=== PATIENT | male | born 1985 | race Hispanic/Latino ===

== ENCOUNTER 2022-02-13 08:05 | Emergency (ER) | payer SELFPAY ==
[2022-02-13] MEDS ORDERED: MORPHINE 4 MG/ML SYR ONE (08:48)
[2022-02-13] MEDS ORDERED: KETOROLAC 30 MG/ML INJ ONE (08:48)
[2022-02-13] MEDS ORDERED: MORPHINE 2 MG/ML SYR ONE (08:48)
--- NOTE | 2022-02-13 10:39 | ER ---
Nurse's Notes [facility] Name: Fredrick Hensley Age: 36 yrs Sex: Male : 1985 Arrival Date: 02/13/2022 Time: 08:13 Bed 8 Private MD: Diagnosis: Low back pain Presentation: 02/13 08:17 Initial Sepsis Screen: Does the patient meet any 2 criteria? No. Patient's initial ll1 sepsis screen is negative. Does the patient have a suspected source of infection? Yes: Bone or joint infection. Risk Assessment: Do you want to hurt yourself or someone else? Patient reports no desire to harm self or others. Onset of symptoms was February 13, 2022. 08:17 Acuity: JANNETH 4 ll1 08:18 Chief complaint: Patient states: Sudden onset of R lower back pain while moving things ll1 this morning at home. Radiates down R leg. Coronavirus screen: Vaccine status: Patient reports being unvaccinated. Client denies travel out of the [place] in the last 14 days. At this time, the client does not indicate any symptoms associated with coronavirus-19. Ebola Screen: Patient denies travel to an Ebola-affected area in the 21 days before illness onset. 08:18 Method Of Arrival: Wheelchair ll1 Triage Assessment: 08:17 General: Appears uncomfortable, Behavior is calm, cooperative, appropriate for age. ll1 Pain: Complains of pain in R lower back Quality of pain is described as aching. Neuro: No deficits noted. Cardiovascular: No deficits noted. Musculoskeletal: Circulation, motion, and sensation intact. Capillary refill < 3 seconds, Reports pain in R lower back. Historical: - Allergies: 08:16 No Known Allergies; ll1 - PMHx: 08:16 Pneumonia; ll1 - PSHx: 08:16 LEG SX with metal placed; ll1 - Immunization history:: Client reports having NOT received the Covid vaccine. - Social history:: Smoking status: Patient/guardian denies using tobacco, the patient reports quitting approximately 1 years ago. Screenin:59 Abuse screen: Denies threats or abuse. Nutritional screening: No deficits noted. vg1 Tuberculosis screening: No symptoms or risk factors identified. Fall Risk None identified. Assessment: 08:30 General: Appears in no apparent distress. uncomfortable, Behavior is calm, cooperative. vg1 Pain: Complains of pain in right leg, right side lower back, and right side of buttocks Pain currently is 10 out of 10 on a pain scale. Pain began 1 hour ago. Neuro: Level of Consciousness is awake, alert, obeys commands, Oriented to person, place, time, situation, Denies paresthesias numbness. Cardiovascular: Patient's skin is warm and dry. Respiratory: Airway is patent Respiratory effort is even, unlabored. GI: No signs and/or symptoms were reported involving the gastrointestinal system. : No signs and/or symptoms were reported regarding the genitourinary system. EENT: No signs and/or symptoms were reported regarding the EENT system. Derm: Skin is intact, is healthy with good turgor. Musculoskeletal: Circulation, motion, and sensation intact. 09:30 Reassessment: Patient appears in no apparent distress at this time. No changes from vg1 previously documented assessment. Patient and/or family updated on plan of care and expected duration. Pain level reassessed. Patient is alert, oriented x 3, equal unlabored respirations, skin warm/dry/pink. states 'I still feel a pulling in my leg; pain is about 8/10'. Vital Signs: 08:17 BP 125 / 88; Pulse 68; Resp 18; Temp 97.9; Pulse Ox 97% ; Weight 117.93 kg; Height 5 ll1 ft. 6 in. (167.64 cm); Pain 10/10; 08:58 BP 108 / 62; Pulse 70; Resp 16; Pulse Ox 97% ; vg1 09:53 BP 117 / 77; Pulse 62; Resp 15; Pulse Ox 97% on R/A; vg1 08:17 Body Mass Index 41.96 (117.93 kg, 167.64 cm) ll1 ED Course: 08:13 Patient arrived in ED. am2 08:16 Arm band placed on Patient placed in an exam room, on a stretcher. ll1 08:18 Triage completed. ll1 08:19 Gonzalez Kapadia PA is PHCP. cp 08:19 Abdi Stevenson MD is Attending Physician. cp 08:26 Calli Marx, RN is Primary Nurse. vg1 08:59 Patient has correct armband on for positive identification. Bed in low position. Call vg1 light in reach. Side rails up X 1. Adult w/ patient. 08:59 No provider procedures requiring assistance completed. Patient did not have IV access vg1 during this emergency room visit. Administered Medications: 08:50 Drug: Ketorolac 30 mg Route: IM; Site: right deltoid; vg1 10:56 Follow up: Response: No adverse reaction; Marked relief of symptoms vg1 08:52 Drug: morphine 10 mg Route: IM; Site: left ventrogluteal; vg1 10:55 Follow up: Response: No adverse reaction; Marked relief of symptoms vg1 10:47 Not Given (Physician Discretion): Baclofen 10 mg PO once vg1 10:55 Drug: Lidoderm Patch 5 % (700 mg/patch) 1 patches Route: Topical; Site: affected area; vg1 10:56 Follow up: Response: Medication administered at discharge. vg1 10:55 Drug: Flexeril (cyclobenzaprine) 10 mg Route: PO; vg1 10:56 Follow up: Response: Medication administered at discharge. vg1 Outcome: 10:39 Discharge ordered by MD. lelia 10:56 Discharged to home ambulatory, with family. vg1 10:56 Condition: good 10:56 Discharge instructions given to patient, Instructed on discharge instructions, follow up and referral plans. medication usage, Demonstrated understanding of instructions, follow-up care, medications, Prescriptions given X 3. 10:56 Patient left the ED. vg1 Signatures: Gonzalez Kapadia PA PA cp Moreno, Amanda am2 Garcia, Victoria RN RN vg1 Nataila Castillo RN RN ll1 Corrections: (The following items were deleted from the chart) 08:57 08:52 morphine 10 mg IM in left vastus lateralis vg1 vg1
--- NOTE | 2022-02-13 10:39 | EDPHYS ---
Physician Documentation [facility] Name: Fredrick Hensley Age: 36 yrs Sex: Male : 1985 Arrival Date: 02/13/2022 Time: 08:13 Bed 8 Private MD: ED Physician Abdi Stevenson HPI: 02/13 08:40 This 36 yrs old Male presents to ER via Wheelchair with complaints of Back cp Pain. 08:40 The patient presents with pain that is acute. The symptoms are located in the right low cp back. Onset: The symptoms/episode began/occurred this morning. The pain radiates to the right leg. 08:40 Associated signs and symptoms: Pertinent negatives: abdominal pain, chest pain, cp constipation, dysuria, fever, incontinence, numbness, weakness. 08:40 The problem was sustained Patient reports he was lifting and moving things this morning cp and started having right lower back pain after driving to work. Historical: - Allergies: 08:16 No Known Allergies; ll1 - PMHx: 08:16 Pneumonia; ll1 - PSHx: 08:16 LEG SX with metal placed; ll1 - Immunization history:: Client reports having NOT received the Covid vaccine. - Social history:: Smoking status: Patient/guardian denies using tobacco, the patient reports quitting approximately 1 years ago. ROS: 08:45 Constitutional: Negative for body aches, chills, fever, poor PO intake. cp 08:45 Eyes: Negative for injury, pain, redness, and discharge. cp 08:45 Cardiovascular: Negative for chest pain, edema, palpitations. 08:45 Respiratory: Negative for cough, shortness of breath, wheezing. 08:45 Abdomen/GI: Negative for abdominal pain, nausea, vomiting, and diarrhea, constipation, bowel incontinence. 08:45 Back: Positive for pain at rest, pain with movement, of the right low back, Negative for injury or acute deformity. 08:45 : Negative for urinary symptoms, bladder incontinence, testicular pain 08:45 Neuro: Negative for altered mental status, headache, numbness, weakness. Exam: 08:50 Constitutional: The patient appears in no acute distress, alert, awake, non-toxic, well cp developed, well nourished, in obvious pain, uncomfortable. 08:50 Head/Face: Normocephalic, atraumatic. cp 08:50 Eyes: Periorbital structures: appear normal, Conjunctiva: normal, no exudate, no injection, Sclera: no appreciated abnormality, Lids and lashes: appear normal, bilaterally. 08:50 ENT: External ear(s): Nose: is normal, Posterior pharynx: Airway: no evidence of obstruction, patent. 08:50 Neck: ROM/movement: is normal, is supple, without pain, no range of motions limitations. 08:50 Chest/axilla: Inspection: normal. 08:50 Cardiovascular: Rate: normal. 08:50 Respiratory: the patient does not display signs of respiratory distress, Respirations: normal, no use of accessory muscles, no retractions, labored breathing, is not present. 08:50 Abdomen/GI: Inspection: abdomen appears normal, Palpation: abdomen is soft and non-tender, in all quadrants. 08:50 Back: pain, that is severe, of the right low back, ROM is painful, with all movement. 08:50 Neuro: Orientation: to person, place \T\ time. Mentation: is normal, Motor: moves all fours, strength is normal, Sensation: is normal, Deep tendon reflexes are 2+ (normal) in the right patellar, right Achilles, left patellar and left Achilles. Vital Signs: 08:17 BP 125 / 88; Pulse 68; Resp 18; Temp 97.9; Pulse Ox 97% ; Weight 117.93 kg; Height 5 ll1 ft. 6 in. (167.64 cm); Pain 10/10; 08:58 BP 108 / 62; Pulse 70; Resp 16; Pulse Ox 97% ; vg1 09:53 BP 117 / 77; Pulse 62; Resp 15; Pulse Ox 97% on R/A; vg1 08:17 Body Mass Index 41.96 (117.93 kg, 167.64 cm) ll1 MDM: 08:30 Patient medically screened. cp 10:38 Data reviewed: vital signs, nurses notes. cp 10:38 Counseling: I had a detailed discussion with the patient and/or guardian regarding: the cp historical points, exam findings, and any diagnostic results supporting the discharge/admit diagnosis, the need for outpatient follow up, a family practitioner, to return to the emergency department if symptoms worsen or persist or if there are any questions or concerns that arise at home. ED course: VSS. Pain markedly improved with meds. Patient appears more comfortable and ambulating in ED w/o assistance. Administered Medications: 08:50 Drug: Ketorolac 30 mg Route: IM; Site: right deltoid; vg1 10:56 Follow up: Response: No adverse reaction; Marked relief of symptoms vg1 08:52 Drug: morphine 10 mg Route: IM; Site: left ventrogluteal; vg1 10:55 Follow up: Response: No adverse reaction; Marked relief of symptoms vg1 10:47 Not Given (Physician Discretion): Baclofen 10 mg PO once vg1 10:55 Drug: Lidoderm Patch 5 % (700 mg/patch) 1 patches Route: Topical; Site: affected area; vg1 10:56 Follow up: Response: Medication administered at discharge. vg1 10:55 Drug: Flexeril (cyclobenzaprine) 10 mg Route: PO; vg1 10:56 Follow up: Response: Medication administered at discharge. vg1 Disposition: 12:12 Co-signature as Attending Physician, Abdi Stevenson MD I agree with the assessment and kdr plan of care. Disposition Summary: 02/13/22 10:39 Discharge Ordered Location: Home cp Problem: new cp Symptoms: have improved cp Condition: Stable cp Diagnosis - Low back pain cp Followup: cp - With: Private Physician - When: 1 - 2 days - Reason: Recheck today's complaints Discharge Instructions: - Discharge Summary Sheet cp - Acute Back Pain, Adult cp - Back Exercises cp Forms: - Medication Reconciliation Form cp - Thank You Letter cp - Antibiotic Education cp - Prescription Opioid Use cp Prescriptions: - Cyclobenzaprine 10 mg Oral Tablet - take 1 tablet by ORAL route every 8 hours As needed; 20 tablet; Refills: 0, cp Product Selection Permitted - Lidoderm 5 % Topical adhesive patch,medicated - apply 1 patch by TOPICAL route once daily; 1 box; Refills: 0, Product Selection cp Permitted - Medrol (Niko) 4 mg Oral Tablets, Dose Pack - take 1 tablet by ORAL route as directed - follow package instructions; 1 cp packet; Refills: 0, Product Selection Permitted Signatures: Abdi Stevenson MD MD kdr Gonzalez Kapadia PA PA cp Garcia, Victoria, RN RN vg1 Natalia Castillo RN RN ll1 Corrections: (The following items were deleted from the chart) 08:33 08:32 Urine Dipstick-Ancillary ordered. cp cp
[2022-02-13] MEDS ORDERED: LIDOCAINE 4% PATCH ONE (10:47)
[2022-02-13] MEDS ORDERED: CYCLOBENZAPRINE 10 MG TAB ONE (10:52)
[2022-02-13 11:01] VITALS: TEMP 97.9; O2SAT 97
[2022-02-13 11:04] VITALS: BP 117/77
== END 2022-02-13 10:56 | disposition home or self-care (01) ==
LOC: ER 08:05
DX: M54.50 Low back pain, unspecified (principal)
CPT/HCPCS: 96372; 99283; J2270